=== PATIENT | male | born 1950 | race Caucasian/White ===

== ENCOUNTER → 2016-11-08 | Outpatient (CLI) | payer MEDICARE ==
[~2016-11-08] MED LIST: ASPI-496 PO; ATOR20TA PO; BENA20TA2 PO; CARV6.252 PO; CHLO473M MM; CYCL-259 PO; FENO145T32 PO; FURO-93 PO; LINA5TAB PO; METF500T4 PO; NAPR-758 PO; REGADENOSON 0.4 MG/5 ML SYRINGE ONE; TRIA15CR2 TP
== END | disposition home or self-care (01) ==
LOC: CFH 06:38
PROVIDERS: ATTEND Internal Medicine Cardiovascular Disease
DX: I11.0 Hypertensive heart disease with heart failure (principal); I08.3 Combined rheumatic disorders of mitral, aortic and tricuspid valves
CPT/HCPCS: 78452; 93017; 93306; A9502; J2785

== ENCOUNTER 2016-11-15 06:24 | Day surgery (SDC) | payer MEDICARE ==
[2016-11-14 12:56] VITALS: BP 117/87
[2016-11-14 13:15] LABS: ASPARTATE AMINO TRANSFERASE 19 U/L (15-37); BLOOD UREA NITROGEN 27 mg/dL (7-18)
[~2016-11-15] VITALS: Ht 182.9 cm; Wt 91.4 kg
[~2016-11-15 06:24] MED LIST changes: -REGADENOSON 0.4 MG/5 ML SYRINGE ONE
[2016-11-15] MEDS ORDERED: ASPIRIN 325 MG TABLET EC PO ONE (06:30)
[2016-11-15] MEDS ORDERED: ASPIRIN 325 MG TABLET EC ONE (06:51)
[2016-11-15] MEDS ORDERED: NITROGLYCERIN 5 MG/ML, 10ML ONE (07:21)
[2016-11-15] MEDS ORDERED: HEPARIN 1,000 UNITS/ML, 10ML ONE (07:21)
[2016-11-15] MEDS ORDERED: TICAGRELOR 90 MG TABLET ONE (07:21)
[2016-11-15] MEDS ORDERED: MIDAZOLAM 1 MG/ML, 5ML ONE (07:21)
[2016-11-15] MEDS ORDERED: LIDOCAINE 2%, 20ML ONE (07:21)
[2016-11-15] MEDS ORDERED: FENTANYL PF 100 MCG/2ML ONE (07:21)
[2016-11-15] MEDS ORDERED: BIVALIRUDIN 250 MG ONE (07:21)
[2016-11-15] MEDS ORDERED: VERAPAMIL 2.5 MG/ML, 2ML ONE (07:21)
[2016-11-15] MEDS ORDERED: SODIUM CHLORIDE 0.45% 1,000 ML IV SCH (09:11)
[2016-11-15] MEDS ORDERED: ACETAMINOPHEN 325 MG TABLET PO PRN (09:30)
== END 2016-11-15 12:55 | disposition home or self-care (01) ==
LOC: CACL 06:24
PROVIDERS: ATTEND Internal Medicine Cardiovascular Disease
DX: I25.10 Atherosclerotic heart disease of native coronary artery without angina pectoris (principal); I42.9 Cardiomyopathy, unspecified; E11.9 Type 2 diabetes mellitus without complications; E78.5 Hyperlipidemia, unspecified; I11.0 Hypertensive heart disease with heart failure; I50.9 Heart failure, unspecified; F17.210 Nicotine dependence, cigarettes, uncomplicated
CPT/HCPCS: 36415; 71020; 80053; 85025; 85610; 85730; 93005; 93458; 99152; C1894; J1644; J2250; J3010; J3490; Q9967; J0583

== ENCOUNTER → 2016-11-16 | Outpatient (CLI) | payer MEDICARE ==
[2016-11-16 07:52] LABS: BLOOD UREA NITROGEN 29 mg/dL (7-18)
== END | disposition home or self-care (01) ==
LOC: LAB 07:21
PROVIDERS: ATTEND Internal Medicine Cardiovascular Disease
DX: R79.89 Other specified abnormal findings of blood chemistry (principal)
CPT/HCPCS: 36415; 80048

== ENCOUNTER 2017-05-01 10:22 | Observation (INO) | payer MEDICARE ==
[2017-04-29 11:30] VITALS: BP 123/84
[2017-04-29 11:52] LABS: HEMOGLOBIN 14.6 g/dL (13.7-18.0); WHITE BLOOD COUNT 7.9 x10^3/uL (3.4-10)
[2017-04-29 12:03] LABS: BLOOD UREA NITROGEN 30 mg/dL (7-18)
[~2017-05-01] VITALS: Ht 182.9 cm; Wt 96.8 kg
[2017-05-01] MEDS ORDERED: GLIM4TAB2 PO (10:54)
[2017-05-01] MEDS ORDERED: LACT1CAP35 PO (10:54)
[2017-05-01] MEDS ORDERED: ACET-1600 PO (10:54)
[2017-05-01] MEDS ORDERED: SPIR25TA3 PO (10:54)
[2017-05-01] MEDS ORDERED: SACU1TAB PO (10:54)
[2017-05-01] MEDS ORDERED: MULT-717 PO (10:54)
[2017-05-01] MEDS ORDERED: CEFAZOLIN PMX 1GM/50ML 0 ML ONE (11:21)
[2017-05-01] MEDS ORDERED: MIDAZOLAM 1 MG/ML, 5ML ONE ×2 (11:21→11:38)
[2017-05-01] MEDS ORDERED: CEFAZOLIN 1,000 MG ONE ×2 (11:21→11:39)
[2017-05-01] MEDS ORDERED: LIDOCAINE 2%, 20ML ONE ×3 (11:21→12:26)
[2017-05-01] MEDS ORDERED: FENTANYL PF 100 MCG/2ML ONE ×2 (11:21→11:38)
[2017-05-01] MEDS ORDERED: CEFAZOLIN PMX 1GM/50ML 50 ML ONE (11:38)
[2017-05-01] MEDS ORDERED: CYCLOBENZAPRINE 10 MG TABLET PO PRN (12:30)
[2017-05-01] MEDS ORDERED: ZOLPIDEM 5MG TABLET PO PRN (12:30)
[2017-05-01] MEDS ORDERED: FUROSEMIDE 20 MG TABLET PO PRN (12:30)
[2017-05-01] MEDS ORDERED: HYDROcodone/APAP 5/325 TABLET PO PRN (13:30)
[2017-05-01 14:30] VITALS: BP 119/77
[2017-05-01] MEDS: CARVEDILOL 25 MG TABLET PO SCH (18:23)
[2017-05-01 19:25] VITALS: BP 114/71
[2017-05-01] MEDS: CEFAZOLIN PMX 1GM/50ML 50 ML IVPB SCH (20:14)
[2017-05-01] MEDS: SODIUM CHLORIDE FLUSH 10ML SYR IVF SCH (20:28)
[2017-05-01] MEDS ORDERED: ATORVASTATIN 20 MG TABLET PO SCH (21:00)
[2017-05-01] MEDS ORDERED: SACUBITRIL/VALSARTAN 24MG-26MG TAB PO SCH (21:00)
[2017-05-01] MEDS: CHLORHEXIDINE GLUCONATE MOUTHWASH 0.12%, 473ML MM SCH (22:15)
[2017-05-02 00:45] VITALS: BP 122/77
[2017-05-02] MEDS: CEFAZOLIN PMX 1GM/50ML 50 ML IVPB SCH (03:55)
[2017-05-02 06:54] VITALS: BP 141/83
[2017-05-02] MEDS: CHLORHEXIDINE GLUCONATE MOUTHWASH 0.12%, 473ML MM SCH (09:00)
[2017-05-02] MEDS: SODIUM CHLORIDE FLUSH 10ML SYR IVF SCH (09:00)
[2017-05-02] MEDS ORDERED: MULTIVITAMINS/MINERALS TABLET PO SCH (09:00)
[2017-05-02] MEDS ORDERED: FENOFIBRATE 145 MG TABLET PO SCH (09:00)
[2017-05-02] MEDS ORDERED: GLIMEPIRIDE 4 MG TABLET PO SCH (09:00)
[2017-05-02] MEDS ORDERED: ASPIRIN 81 MG TABLET EC PO SCH (09:00)
[2017-05-02] MEDS ORDERED: TEMPLATE NON-FORMULARY MED. (Linagliptin** (Tradjenta**) 5 MG) HOMEMEDPO SCH (09:00)
[2017-05-02] MEDS ORDERED: SPIRONOLACTONE 25 MG TABLET PO SCH (09:00)
[2017-05-02] MEDS ORDERED: LACTOBACILLUS CHEW TABLET PO SCH (09:00)
[2017-05-02] MEDS: CARVEDILOL 25 MG TABLET PO SCH (09:16)
== END 2017-05-02 10:49 | disposition home or self-care (01) ==
LOC: CACL 10:22 → ORIP 13:03 → 5SO 13:18
PROVIDERS: ADMIT Internal Medicine Cardiovascular Disease; ATTEND Internal Medicine Cardiovascular Disease
DX: I42.9 Cardiomyopathy, unspecified (principal); I13.0 Hypertensive heart and chronic kidney disease with heart failure and stage 1 through stage 4 chronic kidney disease, or unspecified chronic kidney disease; E11.22 Type 2 diabetes mellitus with diabetic chronic kidney disease; N18.3 Chronic kidney disease, stage 3 (moderate); E78.5 Hyperlipidemia, unspecified; I50.23 Acute on chronic systolic (congestive) heart failure; E78.00 Pure hypercholesterolemia, unspecified; I49.3 Ventricular premature depolarization; G47.30 Sleep apnea, unspecified
CPT/HCPCS: 33249; 36415; 71010; 71020; 80048; 85025; 93005; 96365; 96375; 99156; 99157; C1721; C1779; C1892; C1895; G0378; J0690; J2250; J3010; J3490; 33217

== ENCOUNTER 2017-05-03 18:09 | Emergency (ER) | payer MEDICARE ==
[~2017-05-03] VITALS: Ht 177.8 cm; Wt 98.8 kg
[2017-05-03 18:09] VITALS: BP 175/100
[~2017-05-03 18:09] MED LIST changes: +ACET-1600 PO; +GLIM4TAB2 PO; +LACT1CAP35 PO; +MULT-717 PO; +SACU1TAB PO; +SPIR25TA3 PO
[2017-05-03 18:45] LABS: HEMATOCRIT 41.4 % (39.2-51.8); HEMOGLOBIN 13.9 g/dL (13.7-18.0); WHITE BLOOD COUNT 6.4 x10^3/uL (3.4-10)
[2017-05-03 18:53] LABS: BLOOD UREA NITROGEN 23 mg/dL (7-18)
== END 2017-05-03 19:28 | disposition home or self-care (01) ==
LOC: ED 19:00
DX: L76.32 Postprocedural hematoma of skin and subcutaneous tissue following other procedure (principal); N18.9 Chronic kidney disease, unspecified; E11.9 Type 2 diabetes mellitus without complications; I50.9 Heart failure, unspecified; E78.5 Hyperlipidemia, unspecified; I25.10 Atherosclerotic heart disease of native coronary artery without angina pectoris
CPT/HCPCS: 36415; 71020; 80048; 85025; 93005; 99285

== ENCOUNTER → 2017-05-19 | Outpatient (CLI) | payer MEDICARE | END | disposition home or self-care (01) | LOC: CFH 09:55 | PROVIDERS: ATTEND Internal Medicine Cardiovascular Disease | DX: J84.10 Pulmonary fibrosis, unspecified (principal); Z95.0 Presence of cardiac pacemaker | CPT/HCPCS: 71020 ==

== ENCOUNTER → 2017-06-04 | Outpatient (CLI) | payer MEDICARE | LOC: CFH 08:21 | PROVIDERS: ATTEND Internal Medicine Cardiovascular Disease | DX: J84.10 Pulmonary fibrosis, unspecified (principal); M25.571 Pain in right ankle and joints of right foot; Z95.810 Presence of automatic (implantable) cardiac defibrillator | CPT/HCPCS: 71020 ==

== ENCOUNTER → 2019-01-06 | Outpatient (CLI) | payer MEDICARE ==
[~2019-01-06] MED LIST changes: -BENA20TA2 PO; +BENA20TA54 PO; +METF500T17 PO; -METF500T4 PO; -SPIR25TA3 PO; +SPIR25TA5 PO
== END | disposition home or self-care (01) ==
LOC: CFH 10:31
PROVIDERS: ATTEND Internal Medicine Cardiovascular Disease
DX: I08.0 Rheumatic disorders of both mitral and aortic valves (principal); I11.9 Hypertensive heart disease without heart failure; E78.5 Hyperlipidemia, unspecified; Z95.810 Presence of automatic (implantable) cardiac defibrillator
CPT/HCPCS: 93306

== ENCOUNTER → 2019-01-14 | Outpatient (CLI) | payer MEDICARE | END | disposition home or self-care (01) | LOC: CFH 10:49 | PROVIDERS: ATTEND Nurse Practitioner Family | DX: G31.9 Degenerative disease of nervous system, unspecified (principal); R41.3 Other amnesia | CPT/HCPCS: 70450 ==

== ENCOUNTER 2019-10-13 11:13 | Day surgery (SDC) | payer MEDICARE ==
[~2019-10-13] VITALS: Ht 182.9 cm; Wt 93.8 kg
[~2019-10-13 11:13] MED LIST changes: -GLIM4TAB2 PO; +GLIM4TAB8 PO
[2019-10-13 12:04] VITALS: BP 127/79
[2019-10-13] MEDS ORDERED: SODIUM CHLORIDE 0.9% 1,000 ML IV SCH (12:06)
[2019-10-13] MEDS ORDERED: OMNIPAQUE 300 MG/ML, 10ML VIAL ONE (13:00)
[2019-10-13] MEDS ORDERED: LIDOCAINE-MPF 1%, 5ML ONE (13:26)
[2019-11-18] MEDS ORDERED: INSU100V13 SC (09:58)
[2019-11-18] MEDS ORDERED: BISA-49 PO (09:58)
[2019-11-18] MEDS ORDERED: ALLO100T30 PO (09:58)
[2019-11-18] MEDS ORDERED: SPIR25TA5 PO (09:58)
[2019-11-18] MEDS ORDERED: SACU1TAB7 PO (09:58)
[2019-11-18] MEDS ORDERED: GLIM4TAB8 PO (09:58)
[2019-11-18] MEDS ORDERED: ACET325C6 PO (09:58)
[2019-11-18] MEDS ORDERED: DILT120C80 PO (09:58)
[2019-11-18] MEDS ORDERED: ATOR40TA78 PO (09:58)
[2019-11-18] MEDS ORDERED: CARV6.252 PO (09:58)
[2019-11-23] MEDS ORDERED: TRAM50TA2 PO (10:01)
[2019-11-23] MEDS ORDERED: METH750T87 PO (10:02)
== END 2019-10-13 18:10 | disposition home or self-care (01) ==
LOC: RAD 11:13
PROVIDERS: ATTEND Neurological Surgery
DX: M51.34 Other intervertebral disc degeneration, thoracic region (principal); M48.062 Spinal stenosis, lumbar region with neurogenic claudication; M48.02 Spinal stenosis, cervical region; M54.16 Radiculopathy, lumbar region; M54.31 Sciatica, right side; E11.22 Type 2 diabetes mellitus with diabetic chronic kidney disease; I13.0 Hypertensive heart and chronic kidney disease with heart failure and stage 1 through stage 4 chronic kidney disease, or unspecified chronic kidney disease; I50.9 Heart failure, unspecified; N18.3 Chronic kidney disease, stage 3 (moderate); M10.9 Gout, unspecified; M19.90 Unspecified osteoarthritis, unspecified site; G47.30 Sleep apnea, unspecified; N31.9 Neuromuscular dysfunction of bladder, unspecified; K59.2 Neurogenic bowel, not elsewhere classified; Z79.82 Long term (current) use of aspirin; Z79.84 Long term (current) use of oral hypoglycemic drugs; Z79.891 Long term (current) use of opiate analgesic; Z79.899 Other long term (current) drug therapy; Z87.891 Personal history of nicotine dependence; Z95.810 Presence of automatic (implantable) cardiac defibrillator; Z82.49 Family history of ischemic heart disease and other diseases of the circulatory system; Z82.61 Family history of arthritis; Z83.3 Family history of diabetes mellitus; Z82.69 Family history of other diseases of the musculoskeletal system and connective tissue
CPT/HCPCS: 62284; 72126; 72129; 72132; Q9967

== ENCOUNTER → 2019-11-18 | Outpatient (CLI) | payer MEDICARE ==
[~2019-11-18] MED LIST changes: +ACET325C6 PO; +ALLO100T30 PO; +ATOR40TA78 PO; +BISA-49 PO; +DILT120C80 PO; +INSU100V13 SC; +METH750T87 PO; +SACU1TAB7 PO; +TRAM50TA2 PO
[2019-11-18 10:09] LABS: BASOPHILS # (AUTO) 0.05 x10^3/uL (0-0.1); BASOPHILS % (AUTO) 1 % (0-1); EOSINOPHILS # (AUTO) 0.24 x10^3/uL (0-0.4); EOSINOPHILS % (AUTO) 3 % (1-7); LYMPHOCYTES # (AUTO) 1.65 x10^3/uL (1-3.4); LYMPHOCYTES % (AUTO) 20 % (22-44); MD NO; MEAN CORPUSCULAR HEMOGLOBIN 29.4 pg (27.5-34.5); MEAN CORPUSCULAR HGB CONC 33.3 g/dL (33.2-36.2); MEAN CORPUSCULAR VOLUME 88.3 fL (81-97); MEAN PLATELET VOLUME 7.5 fL (7.4-10.4); MONOCYTES # (AUTO) 0.89 x10^3/uL (0.2-0.8); MONOCYTES % (AUTO) 11 % (2-9); NEUTROPHILS # (AUTO) 5.48 x10^3/uL (1.8-6.8); NEUTROPHILS % (AUTO) 66 % (42-75); PLATELET COUNT 291 x10^3/uL (130-400); RED BLOOD COUNT 5.22 x10^6/uL (4.38-5.82); RED CELL DISTRIBUTION WIDTH 14.6 % (9.4-14.8)
[2019-11-18 10:10] LABS: MICROSCOPIC NOT IND
[2019-11-18 10:21] LABS: INTERNATIONAL NORMALIZED RATIO 0.94 (0.93-1.1)
[2019-11-18 10:22] LABS: ALANINE AMINOTRANSFERASE 58 U/L (12-78); ANION GAP 3 mmol/L (5-15); CALCIUM 9.4 mg/dL (8.5-10.1); CHLORIDE 108 mmol/L (98-107); CREATININE 1.37 mg/dL (0.7-1.3)
[2019-11-18 10:28] LABS: ALKALINE PHOSPHATASE 55 U/L (45-117); BILIRUBIN,TOTAL 0.4 mg/dL (0.2-1.0); TOTAL PROTEIN 7.6 g/dL (6.4-8.2)
== END | disposition home or self-care (01) ==
LOC: STAR 08:35
PROVIDERS: ATTEND Neurological Surgery
DX: Z01.818 Encounter for other preprocedural examination (principal); Z11.59 Encounter for screening for other viral diseases; Z01.812 Encounter for preprocedural laboratory examination; Z01.811 Encounter for preprocedural respiratory examination; M48.062 Spinal stenosis, lumbar region with neurogenic claudication; M51.36 Other intervertebral disc degeneration, lumbar region; R94.31 Abnormal electrocardiogram [ECG] [EKG]; R79.1 Abnormal coagulation profile; J43.9 Emphysema, unspecified; J84.10 Pulmonary fibrosis, unspecified; Z95.0 Presence of cardiac pacemaker
CPT/HCPCS: 36415; 71046; 80053; 81003; 85025; 85610; 85730; U0001

== ENCOUNTER 2020-02-01 12:53 | Outpatient (CLI) | payer MEDICARE ==
[2020-02-01 14:06] LABS: MICROSCOPIC NOT IND
[2020-02-01 14:14] LABS: ALANINE AMINOTRANSFERASE 36 U/L (12-78); ALBUMIN 3.5 g/dL (3.4-5.0); ANION GAP 7 mmol/L (5-15); BASOPHILS # (AUTO) 0.05 x10^3/uL (0-0.1); BASOPHILS % (AUTO) 1 % (0-1); CHLORIDE 107 mmol/L (98-107); CREATININE 1.44 mg/dL (0.7-1.3); EOSINOPHILS # (AUTO) 0.26 x10^3/uL (0-0.4); EOSINOPHILS % (AUTO) 4 % (1-7); LYMPHOCYTES # (AUTO) 1.59 x10^3/uL (1-3.4); LYMPHOCYTES % (AUTO) 21 % (22-44); MD NO; MEAN CORPUSCULAR HEMOGLOBIN 28.6 pg (27.5-34.5); MEAN CORPUSCULAR HGB CONC 32.9 g/dL (33.2-36.2); MEAN PLATELET VOLUME 8.3 fL (7.4-10.4); MONOCYTES # (AUTO) 0.81 x10^3/uL (0.2-0.8); MONOCYTES % (AUTO) 11 % (2-9); NEUTROPHILS # (AUTO) 4.79 x10^3/uL (1.8-6.8); NEUTROPHILS % (AUTO) 64 % (42-75); PLATELET COUNT 294 x10^3/uL (130-400); RED BLOOD COUNT 4.72 x10^6/uL (4.38-5.82); RED CELL DISTRIBUTION WIDTH 14.9 % (9.4-14.8)
[2020-02-01 14:17] LABS: ALKALINE PHOSPHATASE 61 U/L (45-117); BILIRUBIN,TOTAL 0.4 mg/dL (0.2-1.0)
[2020-02-01 14:33] LABS: INTERNATIONAL NORMALIZED RATIO 0.94 (0.93-1.1)
[2020-02-01] MEDS ORDERED: TRIA15CR53 TP (14:38)
[2020-02-01] MEDS ORDERED: FURO20TA3 PO (14:38)
[2020-02-01] MEDS ORDERED: CLOB15CR TP (14:38)
[2020-02-01] MEDS ORDERED: MECL-101 PO (14:38)
== END 2020-02-01 23:59 | disposition home or self-care (01) ==
LOC: STAR 12:53
PROVIDERS: ATTEND Neurological Surgery
DX: Z01.810 Encounter for preprocedural cardiovascular examination (principal); Z01.811 Encounter for preprocedural respiratory examination; Z01.812 Encounter for preprocedural laboratory examination; M50.30 Other cervical disc degeneration, unspecified cervical region; R79.1 Abnormal coagulation profile; R82.90 Unspecified abnormal findings in urine; R94.31 Abnormal electrocardiogram [ECG] [EKG]; I25.2 Old myocardial infarction; I49.3 Ventricular premature depolarization
CPT/HCPCS: 36415; 71046; 80053; 81003; 85025; 85610; 85730; 93005

== ENCOUNTER 2020-02-08 05:39 | Inpatient (IN) | payer MEDICARE ==
[~2020-02-08] VITALS: Ht 182.9 cm; Wt 94.3 kg
[~2020-02-08 05:39] MED LIST changes: +CLOB15CR TP; +FURO20TA3 PO; +MECL-101 PO; +TRIA15CR53 TP
[2020-02-08] MEDS ORDERED: LACTATED RINGERS 1,000 ML IV SCH (06:03)
[2020-02-08 06:10] VITALS: BP 106/71
[2020-02-08] MEDS ORDERED: VANCOMYCIN 1,000 MG ONE (06:18)
[2020-02-08] MEDS ORDERED: BUPIVACAINE/PF-EPI 0.5% 1:200K ONE (06:18)
[2020-02-08] MEDS ORDERED: BACITRACIN 50,000 UNIT ONE (06:18)
[2020-02-08] MEDS ORDERED: CHLORHEXIDINE 15 ML UDC MM ONE (06:30)
[2020-02-08] MEDS ORDERED: FENTANYL PF 250 MCG/5ML ONE (06:50)
[2020-02-08] MEDS ORDERED: MIDAZOLAM 1 MG/ML, 2ML ONE (06:50)
[2020-02-08] MEDS ORDERED: hydrALAzine 20 MG/ML, 1ML IV PRN (07:00)
[2020-02-08] MEDS ORDERED: HYDROmorphone 1 MG/ML, 1ML INJ IVPush PRN ×2 (07:00→08:30)
[2020-02-08] MEDS ORDERED: OXYcodone IR 5MG TABLET PO ONE (07:00)
[2020-02-08] MEDS ORDERED: OXYcodone 5 MG/5 ML ORAL.SOL UDC PO PRN (07:00)
[2020-02-08] MEDS ORDERED: MEPERIDINE/PF 25MG/0.5ML IVPush PRN (07:00)
[2020-02-08] MEDS ORDERED: DIAZEPAM 5 MG/ML, 2ML IVPush PRN (07:00)
[2020-02-08] MEDS ORDERED: FENTANYL PF 100 MCG/2ML IV PRN (07:00)
[2020-02-08] MEDS ORDERED: ACETAMINOPHEN 500 MG TABLET PO ONE (07:00)
[2020-02-08] MEDS ORDERED: LABETALOL 5MG/ML, 20ML IV PRN (07:00)
[2020-02-08] MEDS ORDERED: DIPHENHYDRAMINE 50 MG/ML, 1ML IVPush PRN ×2 (07:00→08:30)
[2020-02-08] MEDS ORDERED: ONDANSETRON 2MG/ML, 2ML IVPush PRN ×2 (07:00→08:30)
[2020-02-08] MEDS ORDERED: PROPOFOL 10 MG/ML, 20ML ONE (07:30)
[2020-02-08] MEDS ORDERED: LIDOCAINE-MPF 2% ,5ML ONE (07:30)
[2020-02-08] MEDS ORDERED: CEFAZOLIN 1,000 MG ONE ×2 (07:30)
[2020-02-08] MEDS ORDERED: ROCURONIUM 10MG/ML,5ML ONE (07:30)
[2020-02-08] MEDS ORDERED: ONDANSETRON 2MG/ML, 2ML ONE (07:30)
[2020-02-08] MEDS ORDERED: DEXAMETHASONE 4 MG/ML, 1ML ONE ×2 (07:31)
[2020-02-08] MEDS ORDERED: NEOSTIGMINE 1 MG/ML, 10ML ONE (07:49)
[2020-02-08] MEDS ORDERED: GLYCOPYRROLATE 0.2MG/1ML, 5ML ONE (07:49)
[2020-02-08] MEDS ORDERED: PHENYLEPHRINE 10 MG/ML ONE (07:51)
[2020-02-08] MEDS ORDERED: BISACODYL 10 MG SUPP PR PRN (08:30)
[2020-02-08] MEDS ORDERED: HYDROcodone/APAP 10/325 MG TABLET PO PRN (08:30)
[2020-02-08] MEDS ORDERED: PROMETHAZINE 25 MG/ML, 1ML IM PRN (08:30)
[2020-02-08] MEDS ORDERED: SENNA/DOCUSATE TABLET PO PRN (08:30)
[2020-02-08] MEDS ORDERED: METHOCARBAMOL 750 MG TABLET PO PRN (08:30)
[2020-02-08] MEDS: DEXAMETHASONE 4 MG/ML, 1ML IVPush SCH ×3 (08:30→20:30)
[2020-02-08] MEDS ORDERED: BISACODYL 5 MG EC TABLET PO PRN (08:30)
[2020-02-08] MEDS ORDERED: PHARMACY MAY ADJ FOR RENAL FX MC PRN (08:30)
[2020-02-08] MEDS ORDERED: INSULIN REGULAR 100 UNITS/ML, 3ML VIAL SQ-INSULIN PRN (08:30)
[2020-02-08] MEDS ORDERED: MAGNESIUM HYDROXIDE 8%, 30ML UDC PO PRN (08:30)
[2020-02-08] MEDS: GLIMEPIRIDE 4 MG TABLET PO SCH (09:00)
[2020-02-08] MEDS: FUROSEMIDE 20 MG TABLET PO SCH (09:00)
[2020-02-08] MEDS: SACUBITRIL PO SCH ×2 (09:00→21:00)
[2020-02-08] MEDS: SPIRONOLACTONE 25 MG TABLET PO SCH (09:00)
[2020-02-08] MEDS: ALLOPURINOL 100 MG TABLET PO SCH (09:00)
[2020-02-08] MEDS: VALSARTAN PO SCH ×2 (09:00→21:00)
[2020-02-08] MEDS: SODIUM CHLORIDE FLUSH 10ML SYR IVF SCH ×2 (09:00→21:00)
[2020-02-08] MEDS: CARVEDILOL 3.125 MG TABLET PO SCH ×2 (09:00→19:58)
[2020-02-08] MEDS: MECLIZINE 25 MG TABLET PO SCH (09:00)
[2020-02-08 09:58] VITALS: BP 121/75
[2020-02-08] MEDS ORDERED: METHOCARBAMOL 1,000 MG in DEXTROSE 5% 100 ML IV ONE (10:30)
[2020-02-08] MEDS: NS + 20MEQ KCL 1,000 ML IV SCH ×2 (11:07→20:00)
[2020-02-08 11:45] VITALS: BP 114/71
[2020-02-08] MEDS: CEFAZOLIN PMX 1GM/50ML 50 ML IVPB SCH ×2 (14:52→23:19)
[2020-02-08 14:53] VITALS: BP 112/71
[2020-02-08] MEDS: HYDROcodone/APAP 5/325 TABLET PO PRN ×2 (15:56→23:19)
[2020-02-08 19:06] VITALS: BP 132/81
[2020-02-08] MEDS ORDERED: INSULIN GLARGINE 100 UNITS/ML, PEN SQ-INSULIN SCH (21:00)
[2020-02-08] MEDS ORDERED: DILTIAZEM 120 MG CAP.ER.24H PO SCH (21:00)
[2020-02-08] MEDS ORDERED: ATORVASTATIN 20 MG TABLET PO SCH (21:00)
[2020-02-08 23:44] VITALS: BP 108/68
[2020-02-09] MEDS: DEXAMETHASONE 4 MG/ML, 1ML IVPush SCH ×2 (02:30→05:21)
[2020-02-09] MEDS: NS + 20MEQ KCL 1,000 ML IV SCH (02:34)
[2020-02-09 03:02] VITALS: BP 110/68
[2020-02-09] MEDS: HYDROcodone/APAP 5/325 TABLET PO PRN (05:22)
[2020-02-09 07:08] VITALS: BP 117/72
[2020-02-09] MEDS: ALLOPURINOL 100 MG TABLET PO SCH (08:38)
[2020-02-09] MEDS: MECLIZINE 25 MG TABLET PO SCH (08:38)
[2020-02-09] MEDS: FUROSEMIDE 20 MG TABLET PO SCH (08:39)
[2020-02-09] MEDS: SPIRONOLACTONE 25 MG TABLET PO SCH (08:39)
[2020-02-09] MEDS: SACUBITRIL PO SCH (08:39)
[2020-02-09] MEDS: CARVEDILOL 3.125 MG TABLET PO SCH (08:39)
[2020-02-09] MEDS: VALSARTAN PO SCH (08:39)
[2020-02-09] MEDS: GLIMEPIRIDE 4 MG TABLET PO SCH (08:39)
[2020-02-09] MEDS: SODIUM CHLORIDE FLUSH 10ML SYR IVF SCH (08:39)
[2020-02-09] MEDS ORDERED: HYDR-3240 PO (09:06)
[2020-02-09] MEDS ORDERED: METH750T87 PO (09:07)
[2020-02-09] MEDS ORDERED: METH4TAB2 PO (09:07)
== END 2020-02-09 10:00 | disposition home or self-care (01) | DRG 472 ==
LOC: ORIP 05:39 → INTOOBSV 05:39 → OBSVTOIN 05:39 → INTOOBSV 05:50 → OBSVTOIN 05:50 → 4NE 09:45 → DCLOUNGE 02-09 09:48
PROVIDERS: ADMIT Neurological Surgery; ATTEND Neurological Surgery
PROC: 0RG10A0 Fusion of Cervical Vertebral Joint with Interbody Fusion Device, Anterior Approach, Anterior Column, Open Approach (ICD-10-PCS; principal; 2020-02-08 07:00)
DX: M48.02 Spinal stenosis, cervical region (principal); G99.2 Myelopathy in diseases classified elsewhere; M48.8X2 Other specified spondylopathies, cervical region; M54.12 Radiculopathy, cervical region
CPT/HCPCS: 36415; 72040; 82962; 87635; 96361; 96365; 96366; 96367; 96375; 96376; C1713; G0378; J0690; J1100; J2250; J2405; J2704; J2710; J3010; J3370; J3480; C1762; C1889; J1815; J2370; J2800; J7120

== ENCOUNTER → 2020-03-24 | Outpatient (CLI) | payer MEDICARE ==
[~2020-03-24] MED LIST changes: +HYDR-3240 PO; +METH4TAB2 PO
== END | disposition home or self-care (01) ==
LOC: CFH 09:55
PROVIDERS: ATTEND Internal Medicine Cardiovascular Disease
DX: I08.0 Rheumatic disorders of both mitral and aortic valves (principal); I11.0 Hypertensive heart disease with heart failure; I50.22 Chronic systolic (congestive) heart failure
CPT/HCPCS: 93306

== ENCOUNTER → 2021-02-26 | Outpatient (CLI) | payer MEDICARE ==
[~2021-02-26] MED LIST changes: -CYCL-259 PO; +CYCL10TA2 PO; +HYDR-2214 PO; -HYDR-3240 PO
== END | disposition home or self-care (01) ==
LOC: CFH 12:38
PROVIDERS: ATTEND Internal Medicine Cardiovascular Disease
DX: I08.3 Combined rheumatic disorders of mitral, aortic and tricuspid valves (principal); I42.9 Cardiomyopathy, unspecified
CPT/HCPCS: 93306